=== PATIENT | female | born 1980 | race Caucasian/White ===

== ENCOUNTER 2023-07-31 14:08 | Outpatient (AMB) | payer SELFPAY ==
--- NOTE | 2023-07-31 14:10 | MHC.AM.SUB ---
Intake Vital Signs 07/31/23 14:17 BP 122/70 Blood Pressure Location Lt radial Position Sitting Pulse 73 Pulse Source Pulse Oximeter Pulse Oximetry (%) 96 Oxygen Delivery Method Room Air Intake Visit Reasons: MAT Intake Intake Note: The patient presents for a mat intake Electronic Technician Required: No Allergies metoclopramide [From REGLAN] Adverse Reaction (Unknown, Unverified 07/31/23 14:20) ANXIETY Do you need a note to return to daycare/school/sports/work: No HPI MAT Intake HPI Details Patient presents for intake and evaluation of treatment for OUD She reports she is currently taking methadone 108mg QD and wishes to transition to buprenorphine and eventually Sublocade She reports opioid use started at age 18 while living in [place] She moved to this area at at 19 years old and by 20 she was incarcerated for 4 years When released from incarceration she worked to change her life and remained abstinent from substance use up until 5 or so years ago Substance Use: -reports opiate use only--pills and heroin. First opiate use at age 18 -denies any history of alcohol or cocaine use -started using heroin over the summer after almost one in recovery -Last use 2 days ago heroin -- using about 2-3x/week. -1/2 bundle IN Treatment History: -3 ATS admissions twice as a teen and once as an adult -methadone is only MOUD she has taken--[facility] in [facility]: -no psychiatric admissions -history of therapy (one year ago) -no history currently experiencing Poor sleep, poor appetite, sadness. Identifies stressors with family and living situation as triggers for use Family history: -father with PAULA Medical History: -reportedly cleared Hepatitis C -no medications aside from methadone -history of cervical(2002 and 2008) and stomach(3 years) cancer -sees oncologist once a year -smoker-1ppd Has been living in [facility] children are 25,24,21 and 16 years old Currently in a relationship 4 years Discussed possible plan for transition to buprenorphine. Provided written and verbal guidance. Review of Systems Const Reports difficulty sleeping and Reports lethargy Psych Reports anxiety, Reports depression and Reports anhedonia Physical Exam Vital Signs: Last Vital Signs Pulse 73 07/31/23 14:17 BP 122/70 07/31/23 14:17 Pulse Ox 96 07/31/23 14:17 Oxygen Delivery Method Room Air 07/31/23 14:17 Const General: cooperative, healthy appearing, no acute distress and well groomed Nutritional Appearance: average body habitus Orientation/consciousness: patient oriented x3 Limitations: no limitations Neuro General: patient oriented x3 Results AMB 14 Panel Urine Drug Screen Urine Marijuana (THC) Positive Last Edit by Terri Mcfarlane CMA on 07/31/23 15:48 Urine Cocaine Negative Last Edit by Terri Mcfarlane CMA on 07/31/23 15:48 Urine Morphine Positive Last Edit by Terri Mcfarlane CMA on 07/31/23 15:48 Urine Methamphetamine Positive Last Edit by Terri Mcfarlane CMA on 07/31/23 15:48 Urine Amphetamine Negative Last Edit by Terri Mcfarlane CMA on 07/31/23 15:48 Urine Benzodiazepine Negative Last Edit by Terri Mcfarlane CMA on 07/31/23 15:48 Urine Barbiturates Negative Last Edit by Terri Mcfarlane CMA on 07/31/23 15:48 Urine Methadone Positive Last Edit by Terri Mcfarlane CMA on 07/31/23 15:48 Urine Buprenorphine Positive Last Edit by Terri Mcfarlane CMA on 07/31/23 15:48 Urine Tricyclic Antidepressant Negative Last Edit by Terri Mcfarlane CMA on 07/31/23 15:48 Urine MDMA Positive Last Edit by Terri Mcfarlane CMA on 07/31/23 15:48 Urine Oxycodone Negative Last Edit by Terri Mcfarlane CMA on 07/31/23 15:48 Urine Phencyclidine Negative Last Edit by Terri Mcfarlane CMA on 07/31/23 15:48 Urine Propoxyphene Negative Last Edit by Terri Mcfarlane CMA on 07/31/23 15:48 Results Reviewed Results Reviewed: Laboratory Last Values POC Urine Buprenorphine Positive 07/31/23 15:40 POC Urine Morphine Positive 07/31/23 15:40 POC Urine Oxycodone Negative 07/31/23 15:40 POC Urine Methadone Positive 07/31/23 15:40 POC Urine Propoxyphene Negative 07/31/23 15:40 POC Urine Barbiturates Negative 07/31/23 15:40 POC U Tricyclic Antidpr Negative 07/31/23 15:40 POC Urine PCP Negative 07/31/23 15:40 POC Ur Amphetamines Negative 07/31/23 15:40 POC Ur Methamphetamine Positive 07/31/23 15:40 POC Urine MDMA Positive 07/31/23 15:40 POC Ur Benzodiazepine Negative 07/31/23 15:40 POC Urine Cocaine Negative 07/31/23 15:40 POC Ur Marijuana (THC) Positive 07/31/23 15:40 Assessment & Plan Assessment & Plan (1) Opioid use disorder: Code(s): F11.90 - Opioid use, unspecified, uncomplicated Plan: patient to follow up with [facility] and let them know of her intention to transition to buprenorphine rx for induction sent to pharmacy trazodone for sleep and hydroxyzine for anxiety also sent follow up one week in office--labs to be completed prior to next visit Orders: Orders AMB 14 Panel Urine Drug Screen Today Z51.81 - Encounter for therapeutic drug level monitoring Medications: New hydroxyzine HCl 25 mg PO TID PRN 20 tabs 0RF anxiety buprenorphine-naloxone 2-0.5 mg (Suboxone) 1 film sublingually daily as instructed for induction 11 ea 0RF trazodone 50 mg PO BEDTIME PRN 10 tabs 0RF sleep Coding Level of Care Code Est Pt Level 4 (73330) Diagnoses Opioid use disorder F11.90
[2023-07-31 14:17] VITALS: BP 122/70; PULSE 73; O2SAT 96
== END 2023-07-31 14:59 | disposition home or self-care (01) ==
PROVIDERS: Visit Provider Nurse Practitioner Psychiatric/Mental Health
DX: F11.90 Opioid use, unspecified, uncomplicated (principal); Z51.81 Encounter for therapeutic drug level monitoring
CPT/HCPCS: 99214

== ENCOUNTER → 2023-07-31 14:08 | Outpatient (BNVA) | payer OTHER, SELFPAY | PROVIDERS: Visit Provider Nurse Practitioner Psychiatric/Mental Health | DX: F11.20 Opioid dependence, uncomplicated (principal) | CPT/HCPCS: 80305; 99212 ==

== ENCOUNTER 2023-09-20 10:00 | Outpatient (AMB) | payer MEDICAID, SELFPAY ==
[2023-09-20 10:03] VITALS: BP 110/70; PULSE 74; RESP 18; O2SAT 93
--- NOTE | 2023-09-20 10:03 | A.OFFVISCC_ITS ---
Intake Vital Signs 09/20/23 10:03 BP 110/70 Blood Pressure Location Rt brachial Position Sitting Respiration 18 Pulse 74 Pulse Source Pulse Oximeter Pulse Oximetry (%) 93 Oxygen Delivery Method Room Air Intake Visit Reasons: mat visit Allergies metoclopramide [From REGLAN] Adverse Reaction (Unknown, Unverified 07/31/23 14:20) ANXIETY HPI mat visit 2 HPI Details Patient presents to reestablish care Lost her insurance coverage, so she was unable to fruit or nut picker suboxone and did not r eturn to her methadone program She reports it has been approx one month since she was last at her [facility]. She report she has been buying methadone on the street and is unsure how much she is taking, but believes she is taking maybe 25mg like every 2 days . She reports she is also using heroin/fentanyl a few days a week approx 10-15 bags when she does use. Her goal is to start buprenorphine. Discussed some challenges related to current use of methadone and fentanyl, and reviewed strategies for addressing these, including re-establishing care with [facility] for now to have consistent dosing of met hadone and then attempt transition again. Also, ATS admission as a possiblity--she declined. During visit patient did not appear to be experiencing any withdrawal sx, appearing comfortable. Discussed overdose prevention and having narcan with her, she reports that she does have it . Review of Systems Const Reports as per HPI and Reports no additional complaints Physical Exam Vital Signs: Last Vital Signs Pulse 74 09/20/23 10:03 Resp 18 09/20/23 10:03 BP 110/70 09/20/23 10:03 Pulse Ox 93 09/20/23 10:03 Oxygen Delivery Method Room Air 09/20/23 10:03 Const General: cooperative, healthy appearing and well groomed Nutritional Appearance: well nourished Limitations: no limitations Psych Appearance: well kempt Speech and movement: Clear speech present Affect: normal affect Attitude: cooperative Thought process: Normal thought process present Insight: Fair insight present (Psych) Judgement: Fair judgement present (Psych) Assessment & Plan Assessment & Plan (1) Opioid use disorder: Code(s): F11.90 - Opioid use, unspecified, uncomplicated Plan: * patient plans to reestablish care at [facility] * discussed challenges with ongoing fentanyl and methadone use when starting bupe, encouraged patient to decrease use as much as possible. * overdose prevention discussion * patient to call office to schedule follow up when ready Coding Level of Care Code Est Pt Level 4 (56418) Diagnoses Opioid use disorder F11.90
== END 2023-09-20 10:23 | disposition home or self-care (01) ==
PROVIDERS: Visit Provider Nurse Practitioner Psychiatric/Mental Health
DX: F11.90 Opioid use, unspecified, uncomplicated (principal)
CPT/HCPCS: 99214

== ENCOUNTER → 2023-09-20 10:00 | Outpatient (BNVA) | payer MEDICAID, SELFPAY | PROVIDERS: Visit Provider Nurse Practitioner Psychiatric/Mental Health | DX: F11.20 Opioid dependence, uncomplicated (principal) | CPT/HCPCS: 99212 ==

== ENCOUNTER 2023-11-14 19:55 | Emergency (ER) | payer MEDICAID, SELFPAY | END 2023-11-14 21:12 | disposition left against medical advice (07) | LOC: HO.ED 21:06 | PROVIDERS: Emergency Provider Emergency Medicine | DX: Z53.21 Procedure and treatment not carried out due to patient leaving prior to being seen by health care provider (principal); G93.0 Cerebral cysts ==

== ENCOUNTER → 2024-08-03 04:52 | Outpatient (BNV) | payer MEDICAID, SELFPAY | PROVIDERS: Emergency Provider Emergency Medicine; PCP Physician Assistant Medical; Visit Provider Radiology Vascular & Interventional Radiology | DX: M54.6 Pain in thoracic spine (principal) | CPT/HCPCS: 72070 ==